=== PATIENT | male | born 1975 | race Caucasian/White ===

== ENCOUNTER 2018-05-03 22:23 | Inpatient (IN) | payer SELFPAY, OTHER ==
[2018-05-03 23:42] LABS: #Basophils 0.1 thou/uL (0.0-0.2); #Eosinphils 0.2 thou/uL (0.0-0.7); #Monocytes 0.8 thou/uL (0.11-0.59); #Neutrophils 6.1 thou/uL (1.40-6.50); %Basophils 0.8 % (0.0-1.0); %Eosinophils 1.7 % (0.0-10.0); %Lymphocytes 29.8 % (21.0-51.0); %Monocytes 8.2 % (0.0-10.0); %Neutrophils 59.5 % (42.0-75.0); Hemoglobin 11.1 g/dL (14.0-18.0); Mean Corpuscular HGB CONC 32.8 g/dL (32.0-36.0); Mean Corpuscular Hemoglobin 28.7 pg (27.0-31.0); Mean Corpuscular Volume 87.5 fL (78.0-98.0); Mean Platelet Volume 7.3 fL (7.4-10.4); Platelet Count 398 thou/uL (130-400); Red Blood Cell (RBC) Count 3.86 mill/uL (4.70-6.10); White Blood Cell (WBC) Count 10.2 thou/uL (4.8-10.8)
[2018-05-03 23:49] LABS: PTT 31.2 SEC (22.9-36.1); Prothrombin Time 13.2 SEC (12.0-14.7)
[2018-05-03] MEDS ORDERED: Ondansetron HCl/PF 4 MG/2 ML Vial ONE (23:54)
[2018-05-03] MEDS ORDERED: Pantoprazole 40 MG VIAL ONE (23:54)
[2018-05-04 00:03] LABS: ALT (SGPT) 19 U/L (8-55); AST (SGOT) 13 U/L (5-34); Albumin 3.9 g/dL (3.5-5.0); Alkaline Phosphatase 48 U/L (40-150); Anion Gap 10 mmol/L (10-20); BUN (Urea Nitrogen) 24 mg/dL (8.9-20.6); Bilirubin, Total 0.3 mg/dL (0.2-1.2); Calc. Creatinine Clearance 0 mL/min (70-130); Calcium 8.5 mg/dL (7.8-10.44); Carbon Dioxide 24 mmol/L (22-29); Chloride 110 mmol/L (98-107); Estimated GFR-MDRD Greater than 90; Globulin 2.4 g/dL (2.4-3.5); Glucose 93 mg/dL (70-105); Potassium 3.6 mmol/L (3.5-5.1); Protein, Total 6.3 g/dL (6.0-8.3); Sodium 140 mmol/L (136-145)
[2018-05-04 03:09] VITALS: BMI 32.5
[2018-05-04] MEDS ORDERED: Ondansetron HCl/PF 4 MG/2 ML Vial IVP PRN ×2 (08:45→11:01)
[2018-05-04] MEDS ORDERED: Bisacodyl 5 MG TAB PO PRN (08:45)
--- NOTE | 2018-05-04 10:07 | HP ---
PRIMARY CARE PROVIDER: Terrell Nunn M.D. CHIEF COMPLAINT: Abdominal pain. HISTORY OF PRESENT ILLNESS: Mr. Masters is a pleasant 42-year-old gentleman who was seen at [facility] on 05/04/2018 following transfer from emergency room at [facility]. He works on an oil rig until 1 week ago. He reports that he has been using Aleve for joint pains 2 times a day for a couple of months. A 1-1/ 2 weeks ago, he noticed that he had pain in the epigastric region. He describes it as different from his gastroesophageal reflux disease pain, on and off, sharp, 150/10 at its worst, radiating to his b ack and shoulders, accompanied by nausea. He also reports having chills. 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 He was diagnosed with ulcer. Two days ago, he started having black sto ols. He reports having multiple black tarry stools. He also reports having generalized weakness. H clint had a recurrence of the pain overnight without relief. He therefore presented to the emergency [facility]. REVIEW OF SYSTEMS: All other systems reviewed and found to be negative. MEDICAL HISTORY: Gastroesophageal reflux disease. PAST SURGICAL HISTORY: Surgery for acid reflux in [place] 10 years ago, he does not recall the name of the surgery, or the surgeon. He also had amputation and reattachment of right fifth finger. He a lso had left knee surgery x2. SOCIAL HISTORY: The patient smokes half -a-pack of cigarettes a day. He reports occasional alcohol use, no recreational drug use. FAMILY HISTORY: Significant for cardiomyopathy in his mother. ALLERGIES: No known drug allergies. CURRENT MEDICATIONS: None. PHYSICAL EXAMINATION: GENERAL: Mr. Masters is awake and alert, not in acute distress. VITAL SIGNS: Blood pressure is 98/59, pulse 64, respiratory rate 18, and oxygen saturation 93% on ro om air. He is afebrile. EYES: No scleral icterus. No conjunctival pallor. ENT: Moist mucosal membranes, no oropharyngeal erythema or exudates. NECK: Supple, nontender, trachea is midline. RESPIRATORY: Accessory muscles of breathing are not active. Chest wall movements are symmetric bila terally. LUNGS: Clear to auscultation without wheeze, rhonchi or crepitations. CARDIOVASCULAR: S1 and S2 are heard, regular. Peripheral pulses palpable. No carotid bruit, no per icardial rub. ABDOMEN: Soft, mild epigastric tenderness, no guarding or rigidity, bowel sounds heard. NEUROLOGIC: Cranial nerves II through XII intact. Deep tendon reflexes are 2+. MUSCULOSKELETAL: Power is 5/5 in all 4 extremities. SKIN: No rashes or subcutaneous nodules. LYMPHATIC: No cervical lymphadenopathy. PSYCHIATRIC: Normal mood, normal affect, patient is oriented to person, place and time. BODY HABITUS: Obese, with a BMI of 32.5. LABORATORY DATA AND IMAGING: Mr. Masters's labs and investigations were reviewed. He had a chest x- ray, which did not show any pulmonary infiltrates. He has a normal sodium, normal potassium, normal creatinine, elevated blood urea nitrogen of 24, normal LFTs, INR 1.0, normal white count, normocytic anemia with hemoglobin 11.1, it was 12.3 at [facility], normal platelet count and sugar l calcium. ASSESSMENT AND PLAN: Mr. Masters is a pleasant 42-year-old gentleman who was seen at [facility] on 05/04/2018. His problem list includes: 1. Symptomatic anemia: Mr. Masters is presenting with generalized weakness secondary to anemia. Mo st likely etiology of anemia is upper gastrointestinal bleed. 2. Upper gastrointestinal bleed: Most likely secondary to nonsteroidal anti-inflammatory agent use. Patient will be admitted to the hospital for further investigations including rechecking hemoglobin level. Gastroenterology service will be consulted for possible scope studies. 3. Tobacco abuse: Patient counseled regarding tobacco abuse, we will start the patient on nicotine replacement therapy. Many thanks for allowing me to participate in your patient's care. Please feel free to contact me wi th any questions or concerns. LEVEL OF RISK: Moderate. LEVEL OF COMPLEXITY: Moderate.
[2018-05-04] MEDS ORDERED: Pantoprazole 40 MG VIAL IVP SCH ×2 (10:45→11:45)
[2018-05-04] MEDS ORDERED: Promethazine HCl 25 MG/ML VIAL IM PRN (11:01)
[2018-05-04] MEDS ORDERED: Promethazine HCl 25 MG/ML VIAL SLOW IVP PRN (11:01)
[2018-05-04] MEDS ORDERED: Morphine 2 MG/ML SYRINGE SLOW IVP PRN (12:00)
[2018-05-04] MEDS: Pantoprazole 80 MG in Sodium Chloride 0.9% 100 ML IVP SCH ×2 (12:03→23:18)
[2018-05-04] MEDS: Sodium Chloride 0.9% 1,000 ML IV SCH ×2 (12:08→15:51)
[2018-05-04] MEDS: Nicotine 14 MG PATCH TD SCH (12:10)
[2018-05-04 12:52] LABS: Hemoglobin 10.4 g/dL (14.0-18.0)
[2018-05-04] MEDS ORDERED: Lidocaine 1% PF 5 ML VIAL ONE (13:48)
[2018-05-04] MEDS ORDERED: PROPOFOL 200 MG/20 ML VIAL ONE (13:48)
--- NOTE | 2018-05-04 14:22 | CON ---
DATE OF CONSULTATION: 05/03/2018 REASON FOR CONSULTATION: Epigastric pain and melena. 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 His notes he takes about 2 ibuprofen a day and he returned about a week ago. He notes that for about the past 4-5 days he does not want to eat. He has epigastric discomfo rt, does not want to eat much, feels full early, and then yesterday, early in the morning, he woke wi th a pretty severe epigastric pain, which went to his back and shoulders. Apparently, he also had ch ills. He was dry heaving in the bathroom and then had bowel movements, which became actually just li quid black stools. Apparently, he had been given some Carafate by the primary physician, possibly a PPI, but with worsening symptoms, he went to the emergency room last night and was transferred here. At present, the patient has no chest pain, shortness breath, dyspnea on exertion, dysphagia, odynoph agia. No history of weight loss. PAST MEDICAL HISTORY: Reflux. PAST SURGICAL HISTORY: Acid reflux surgery 10 years ago in [place]. This was laparoscopic. He has also had amputation of the right fifth finger and left knee surgery x2. SOCIAL HISTORY: He smokes half-pack of cigarettes a day. Reports occasional alcohol use, no recreat ional drug use. FAMILY HISTORY: Negative for GI disease. ALLERGIES: None known. MEDICATIONS AT HOME: None, maybe he was given some Carafate recently and a PPI recently. Presently, he is on Protonix, IV fluids, Nicoderm patch, and p.r.n. morphine. PHYSICAL EXAMINATION: VITAL SIGNS: Temperature 98, pulse 68, blood pressure 98/58, it was 126/77 at 11:00 last night. EYES: Generally, his conjunctivae are slightly pale. LUNGS: Clear. HEART: Regular rate and rhythm without clicks or murmurs. ABDOMEN: Soft, nontender. There is no rebound. There is no guarding. EXTREMITIES: No clubbing, cyanosis, edema. LABORATORY AND X-RAY FINDINGS: White count 10.2, hemoglobin is 11.1, platelet count is 398. Electro lytes were normal. BUN is 24 and creatinine 0.8. ASSESSMENT: Likely epigastric pain for several days with history of heavy non-steroidal antiinflamma tory drug use and now with melena, mild anemia with elevated BUN. This is likely related to upper ga strointestinal bleeding. He has a benign abdomen with no signs of peritoneal symptoms to indicate pe rforation. RECOMMENDATIONS: Continue IV fluids, PPIs, we will proceed with EGD urgently.
--- NOTE | 2018-05-04 14:29 | OP ---
PREOPERATIVE DIAGNOSES: Melena, drop in hemoglobin, epigastric and back pain, heavy nonsteroidal ant iinflammatory drug use. POSTOPERATIVE DIAGNOSES: A 0.7 x 1.7 cm ulcer along the proximal lesser curve, just above the incisu ra of the stomach with visible vessel, no active bleeding and no clot. PROCEDURES: EGD with biopsy of gastric ulcer, biopsy of antrum to rule out H. pylori and control of a high-risk stigmata of bleeding with cautery of the visible vessel in the base of gastric ulcer. RECOMMENDATIONS: 1. Continue IV Protonix. 2. Ice chips only until tomorrow. 3. If no bleeding, start liquids tomorrow. 4. H and H q.8 hours. 5. Avoid NSAIDs. 6. Await biopsies. PROCEDURE IN DETAIL: After the patient was informed of the risks, benefits, and possible complicatio ns of endoscopy including perforation, bleeding, reactions to medication and aspiration, informed con sent was obtained. The patient brought to the endoscopy suite where he was sedated in a gradual fash ion. Once he was comfortable, a bite block was placed in the incisural orifice. The endoscope was a dvanced through the esophagus, stomach, and second and third portion of duodenum. The esophagus was normal. The stomach was notable for previous fundoplication. There was some slippage of the fundopl ication with a small paraesophageal hernia. There is no evidence of erosions or ulcerations in this area or mucosal changes. The scope was then advanced further down the stomach along the lesser curve proximal to the incisura. Just proximal to incisura, there was a linear ulcer between the gastric f olds, which was deep, white-based with a visible vessel. There is no clot or active bleeding. It me asures about 1.7 x 0.7 cm in size. The depth is about 0.5 cm. The antrum was then evaluated and was normal. The duodenal bulb was normal with a clear bile coming out from the ampulla of the second an d third portion of the duodenum were normal. Attention was then turned to the ulcer, the base of whi ch was noted to have visible vessel and this was cauterized with a 10-Malay heater probe with ablati on. Attempt then was made to clip the ulcer; however, its widest margins precluded getting a clip ar ound this and this had to be abandoned, as it was not amenable to being clipped. There were no visib le vessels, specifically to clip. A biopsy was then taken from the margin of the ulcer, rule out mal ignancy and a biopsy was taken from the antrum for Helicobacter pylori. The scope was removed. The patient brought to recovery room in stable condition.
[2018-05-04] MEDS: Morphine 4 MG/ML VIAL SLOW IVP PRN ×2 (17:27→23:16)
[2018-05-04 18:44] LABS: Hemoglobin 10.6 g/dL (14.0-18.0)
[2018-05-05 05:43] LABS: #Basophils 0.1 thou/uL (0.0-0.2); #Eosinphils 0.2 thou/uL (0.0-0.7); #Lymphocytes 2.3 thou/uL (1.20-3.40); #Monocytes 0.7 thou/uL (0.11-0.59); %Basophils 1.3 % (0.0-1.0); %Eosinophils 2.5 % (0.0-10.0); %Lymphocytes 31.2 % (21.0-51.0); %Monocytes 9.4 % (0.0-10.0); %Neutrophils 55.6 % (42.0-75.0); Mean Corpuscular HGB CONC 33.1 g/dL (32.0-36.0); Mean Corpuscular Hemoglobin 29.3 pg (27.0-31.0); Mean Corpuscular Volume 88.5 fL (78.0-98.0); Mean Platelet Volume 7.7 fL (7.4-10.4); Platelet Count 347 thou/uL (130-400); RBC Distribution Width 12.9 % (11.5-14.5); Red Blood Cell (RBC) Count 3.43 mill/uL (4.70-6.10); White Blood Cell (WBC) Count 7.3 thou/uL (4.8-10.8)
[2018-05-05] MEDS: Morphine 4 MG/ML VIAL SLOW IVP PRN (06:29)
[2018-05-05 06:34] LABS: Anion Gap 9 mmol/L (10-20); BUN (Urea Nitrogen) 13 mg/dL (8.9-20.6); Calc. Creatinine Clearance 192 mL/min (70-130); Calcium 8.3 mg/dL (7.8-10.44); Carbon Dioxide 25 mmol/L (22-29); Chloride 107 mmol/L (98-107); Estimated GFR-MDRD Greater than 90; Glucose 82 mg/dL (70-105); Potassium 3.7 mmol/L (3.5-5.1); Sodium 137 mmol/L (136-145)
[2018-05-05] MEDS: Pantoprazole 80 MG in Sodium Chloride 0.9% 100 ML IVP SCH (09:30)
[2018-05-05] MEDS: Nicotine 14 MG PATCH TD SCH (09:33)
--- NOTE | 2018-05-05 11:26 | PDOC.PN ---
- Subjective Encounter Start Date: 05/05/18 Encounter Start Time: 09:00 Pt seen for followup re: symptomatic anemia. Feels better. Denies chest pain, shortness of breath, fevers or chills. - Objective MAR Reviewed: Yes Vital Signs & Weight: Vital Signs (12 hours) Temp Pulse Resp BP Pulse Ox 05/05/18 04:00 97.9 F 75 18 98/62 92 L 05/05/18 00:00 98.2 F 78 18 111/65 92 L Weight Weight 240 lb I&O: 05/04/18 05/05/18 05/06/18 06:59 06:59 06:59 Intake Total 1000 Balance 1000 Result Diagrams: 05/05/18 04:38 05/05/18 04:38 Additional Labs: Labs reviewed by me Phys Exam - Physical Examination Obese HEENT: moist MMs, sclera anicteric, oral pharynx no lesions, 2+ tonsils Neck: no nodes, no JVD, supple, full ROM Respiratory: no wheezing, no rales, no rhonchi, clear to auscultation bilateral Cardiovascular: RRR, no rub S1, S2 Gastrointestinal: soft, non-tender, no distention, positive bowel sounds Neurological: moves all 4 limbs Psychiatric: normal affect, A&O x 3 Dx/Plan (1) Symptomatic anemia Code(s): D64.9 - ANEMIA, UNSPECIFIED Status: Acute Comment: secondary to upper GI bleed, improved. Hemoglobin stable. (2) Upper GI bleed Code(s): K92.2 - GASTROINTESTINAL HEMORRHAGE, UNSPECIFIED Status: Acute Comment: Due to gastric ulcer (s/p EGD). Hemoglobin stable (3) Gastric ulcer Code(s): K25.9 - GASTRIC ULCER, UNSP ACUTE OR CHRONIC, W/O HEMOR OR PERF Status: Acute Comment: on IV PPI (4) Tobacco abuse Code(s): Z72.0 - TOBACCO USE Status: Chronic Comment: on nicotine replacement therapy - Plan DVT proph w/SCDs * . start clear fluid diet Review of Systems - Review of Systems Constitutional: negative: fever, chills, sweats, weakness, malaise Respiratory: negative: Cough, Shortness of Breath, SOB with Excertion, Pleuritic Pain, Wheezing Cardiovascular: negative: chest pain, palpitations, orthopnea, paroxysmal nocturnal dyspnea, edema, light headedness Gastrointestinal: negative: Nausea, Vomiting, Abdominal Pain, Diarrhea, Constipation, Melena, Hematochezia Genitourinary: negative: Dysuria, Frequency, Incontinence, Hematuria, Retention - Medications/Allergies Allergies/Adverse Reactions: Allergies Allergy/AdvReac Type Severity Reaction Status Date / Time No Known Drug Allergies Allergy Verified 05/04/18 02:09 Medications: Current Medications Bisacodyl (Dulcolax) 10 mg PO DAILYPRN PRN PRN Reason: Constipation Pantoprazole Sodium 80 mg/ (Sodium Chloride) 100 mls @ 10 mls/hr IVP INF ARLEEN Stop: 05/05/18 21:00 Last Admin: 05/05/18 09:30 Dose: 100 mls Morphine Sulfate (Morphine) 2 mg SLOW IVP Q4H PRN PRN Reason: Pain Last Admin: 05/05/18 06:29 Dose: 2 mg Nicotine (Nicoderm Patch) 14 mg TD Q24HR ARLEEN Last Admin: 05/05/18 09:33 Dose: Not Given Ondansetron HCl (Zofran) 4 mg IVP Q6H PRN PRN Reason: Nausea/Vomiting Pantoprazole Sodium (Protonix) 40 mg PO BID ARLEEN Sodium Chloride (Flush - Normal Saline) 10 ml IVF Q12HR ARLEEN Last Admin: 05/05/18 09:32 Dose: 10 ml Sodium Chloride (Flush - Normal Saline) 10 ml IVF PRN PRN PRN Reason: Saline Flush Sodium Chloride (Flush - Normal Saline) 10 ml IVF PRN PRN PRN Reason: Saline Flush
[2018-05-05 12:05] LABS: Hemoglobin 9.9 g/dL (14.0-18.0)
--- NOTE | 2018-05-05 12:46 | PRG ---
DATE OF SERVICE: 05/05/2018 SUBJECTIVE: Mr. Masters has had no bleeding overnight. He was started on some clears. PHYSICAL EXAMINATION: VITAL SIGNS: Temperature is 97.9, pulse 75, blood pressure 98/82-111/65. GENERAL: He denies any nausea or vomiting. He has had no bowel movements. He looks well. He is si tting comfortably in bed. HEENT: Oropharynx without lesions. NECK: Supple without adenopathy. LUNGS: Clear. HEART: Regular rate and rhythm. ABDOMEN: Nontender. LABORATORY STUDIES: White count 7.3, hemoglobin 10.0, platelet count 347. INR was normal yesterday, which is the day of admission. BUN and creatinine are improved at 13 and 0.78. Electrolytes are no rmal. ASSESSMENT: 1. Anemia secondary to acute gastrointestinal blood loss from gastric ulcer, stable. 2. Gastric ulcer, proximal lesser curve, treated endoscopically, as a stigmata of high risk for re-b leeding. Biopsies pending. RECOMMENDATIONS: 1. After the current bag of Protonix drip is complete, he can switch to p.o. PPI b.i.d. 2. Avoid NSAIDs. 3. He can go to full liquids, if he is doing well and then regular diet tomorrow morning if no signs of bleeding. 4. We will discontinue q.8-hour H and Hs and recheck tomorrow. 5. 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 Terrell Nunn, in 1 week. If he has no signs of bleeding and his hemoglobin is stable, I think he will be able to go back to work at that time, if he feels he is able to do the work. Otherwise, he will need a [facility] EGD in 6-8 weeks to document healing. I have his phone number and his 's phone number and we can call them with the biopsy results. If he remains stable with no signs of bleeding and tolerates diet, then he can go home tomorrow on p.o. PPIs in the afternoon.
[2018-05-05 20:26] LABS: Hemoglobin 10.7 g/dL (14.0-18.0)
[2018-05-06 01:30] VITALS: TEMP 98.2
[2018-05-06 07:14] VITALS: BP 115/72
[2018-05-06] MEDS: Nicotine 14 MG PATCH TD SCH (07:51)
--- NOTE | 2018-05-06 23:05 | DIS ---
DATE OF ADMISSION: 05/04/2018 DATE OF DISCHARGE: 05/06/2018 PRIMARY CARE PROVIDER: Terrell Nunn M.D. DISCHARGE DIAGNOSES: 1. Symptomatic anemia. 2. Upper gastrointestinal bleed. 3. Gastric ulcer. 4. Tobacco abuse. CONDITION OF PATIENT AT THE DAY OF DISCHARGE: Stable. I assessed Mr. Masters on the day of discharg e. He denies any chest pain or shortness of breath. Vital signs are stable. S1 and S2 are heard, r egular. Lungs are clear to auscultation bilaterally. DISCHARGE MEDICATIONS: Protonix 40 mg 2 times a day, Nicoderm 14 mg patch daily. He has been advise d to stop smoking and not to use nonsteroidal anti-inflammatory agents. CONSULTATIONS DURING THIS HOSPITALIZATION: Gastroenterology, Jayjay Tsai M.D. HOSPITAL COURSE: Mr. Masters is a pleasant 42-year-old gentleman who was admitted to [facility] on 05/04/2018 for symptomatic anemia secondary to upper gastrointestinal bleed. Nakia frances refer to my history and physical note dated 05/04/2018 for further details. He was seen by [facility]. On 05/04/2018, he underwent EGD, which showed a 0.7 x 1.7 cm ulcer along the proximal lesser curve, just above the incision of the stomach with a visible vessel, no active bleedi ng and no clot. Biopsies were done of the gastric ulcer as well as antrum to rule out H. pylori. He also had cautery of the visible vessel in the base of gastric ulcer. Hemoglobin was stable. He was tolerating diet. He is being discharged home in a stable condition. He is advised to follow up with Gastroenterology Service for biopsy results. He is also advised to f ollow up with his primary care provider. On 05/05/2018, he had hemoglobin 10.7, normal electrolytes and normal creatinine. Many thanks for allowing me to participate in your patient's care. Please feel free to contact me wi th any questions or concerns. DISCHARGE DESTINATION: Home. TOTAL AMOUNT OF TIME SPENT COORDINATING THIS DISCHARGE: 33 minutes.
== END 2018-05-06 13:38 | disposition home or self-care (01) | DRG 378 ==
LOC: ERS 22:23 → T4-B 23:45
PROVIDERS: ADMIT Hospitalist; ATTEND Hospitalist
PROC: 0DB78ZX Excision of Stomach, Pylorus, Via Natural or Artificial Opening Endoscopic, Diagnostic (ICD-10-PCS; principal; 2018-05-04)
PROC: 0W3P8ZZ Control Bleeding in Gastrointestinal Tract, Via Natural or Artificial Opening Endoscopic (ICD-10-PCS; 2018-05-04)
DX: K25.4 Chronic or unspecified gastric ulcer with hemorrhage (principal); D62 Acute posthemorrhagic anemia; K21.9 Gastro-esophageal reflux disease without esophagitis; F17.210 Nicotine dependence, cigarettes, uncomplicated; K44.9 Diaphragmatic hernia without obstruction or gangrene
CPT/HCPCS: 36415; 80048; 80053; 85014; 85018; 85025; 85610; 85730; 88305; 88312; 88342; 94760; 96374; 96375; A4216; C9113; J2001; J2270; J2405; J2704; J7050